=== PATIENT | female | born 1970 | race Caucasian/White ===

== ENCOUNTER 2020-09-18 13:19 | Outpatient (CLI) | payer OTHER, SELFPAY ==
--- NOTE | ~2020-09-18 | US_ITS ---
EXAMINATION: US venous doppler [facility] EXAM DATE: 09/18/2020 13:47 INDICATION: Thrombophlebitis and Phlebitis of unsp site. TECHNIQUE: Multiple grayscale, color flow and Doppler images of the left lower extremity deep venous system were obtained and reviewed. There is no prior study for comparison. FINDINGS: The left common femoral, femoral and profunda veins demonstrate normal color flow, respirat ory variation, augmentation and compressibility. Compressibility, color flow confirmed within the le ft popliteal, posterior tibial, peroneal, and greater saphenous veins. Posterior left calf palpable area demonstrates a thrombosed serpiginous superficial vein. IMPRESSION: 1. Left calf superficial thrombophlebitis. 2. No left lower extremity deep venous thrombosis. Reviewed, dictated and finalized at location A. [employer]
== END 2020-09-18 13:20 ==
PROVIDERS: PCP Nurse Practitioner; Visit Provider Nurse Practitioner
DX: I80.02 Phlebitis and thrombophlebitis of superficial vessels of left lower extremity (principal)
CPT/HCPCS: 93971

== ENCOUNTER 2020-09-24 13:13 | Emergency (ER) | payer OTHER, SELFPAY ==
--- NOTE | ~2020-09-24 | US_ITS ---
EXAMINATION: US venous doppler [facility] DATE: 09/24/2020 14:23 INDICATION: Left lower limb swelling. TECHNIQUE: Grayscale ultrasound images without and with compression and Doppler ultrasound images of the left lower extremity veins were obtained. COMPARISON: Ultrasound 09/18/2020 FINDINGS: The visualized portions of left common femoral vein, profunda (deep) femoral vein, femoral vein, popl iteal vein, peroneal veins, and posterior tibial veins are patent. There is thrombus in left greater saphenous vein. IMPRESSION: 1. No deep venous thrombosis. 2. Thrombus in left greater saphenous vein, which is a superficial vein. Reviewed, dictated and finalized at location A. [employer]
[2020-09-24 13:14] VITALS: BP 149/83; PULSE 99; RESP 20; TEMP 37.1; O2SAT 100
--- NOTE | 2020-09-24 13:49 | ED.GENADULT ---
HPI - General Adult General Chief complaint: Extremity Injury, Lower Stated complaint: Possible blood clot in left leg. Sent by PCP Time Seen by Provider: 09/24/20 13:39 Source: RN notes reviewed History of Present Illness HPI narrative: Patient presents emergency department from PCPs office for left leg pain. She states that starting last week she began to have pain in her left posterior calf. At that time on 18 September she had an ultrasound that showed superficial thrombophlebitis. She states that she been told to rest and elevate the leg and states that she has progressively had pain up to the medial knee and then the medial thigh she followed up in the office today and was asked to come to the ED for further evaluation. Patient denies any direct trauma or injury she denies any fever chills chest pain shortness of breath or any other symptoms Related Data Allergies Allergy/AdvReac Type Severity Reaction Status Date / Time No Known Allergies Allergy Verified 09/24/20 14:19 Review of Systems Review of Systems: Narrative: Gen.: Denies fevers or chills Eyes: Denies eye pain or visual change ENT: Denies congestion Respiratory: Denies shortness of breath or cough CV: Denies chest pain or palpitations GI: Denies abdominal pain nausea, emesis or diarrhea Musculoskeletal: See HPI Neuro: Denies numbness, tingling, weakness or focal weakness Skin: Denies rash Except as documented, all other systems reviewed and negative [facility] Past Medical History Medical History (Updated 09/24/20 @ 15:06 by Abram Boykin DO) Hypertension Social History Social History (Updated 09/24/20 @ 13:50 by Abram Boykin DO) Smoking status: Never smoker Gender identity (if verbalized by the patient): Female Exam Narrative: Exam Narrative: APPEARANCE: No acute distress, nontoxic, resting in bed EYES: EOMI HEENT: Normocephalic, atraumatic, OMM RESPIRATORY: No respiratory distress MUSCULOSKELETAl: Moves all extremities. No clubbing, cyanosis or edema. Tender palpation of the left posterior calf with mild swelling as well as left medial knee and left medial thigh with mild swelling no overlying erythema, dorsalis pedis pulse 2+ neurovascular intact NEURO: Awake and alert. Following commands, speech normal, no focal deficits SKIN:: Warm, dry. No rashes lesions or abrasions PSYCHIATRIC: Normal affect/mood, Course Course Emergency Course: Discussed Dr. Terry presentation work-up agrees plan for discharge follow-up as an outpatient Discussed with patient results of workup and diagnosis. Discussed need for follow-up with primary care, proper use of medication, and reasons to return to the emergency department. Patient understands and agrees to current treatment plan Vital Signs Vital signs: Vital Signs Temperature 98.8 F 09/24/20 13:14 Pulse Rate 99 09/24/20 13:14 Respiratory Rate 20 09/24/20 13:14 Blood Pressure 149/83 H 09/24/20 13:14 Pulse Oximetry 100 09/24/20 13:14 Temperature 98.8 F 09/24/20 13:14 Pulse Rate 81 09/24/20 14:19 Respiratory Rate 18 09/24/20 14:19 Blood Pressure 123/82 09/24/20 14:19 Pulse Oximetry 98 09/24/20 14:19 Medical Decision Making Vital Signs Vital Signs: Vital Signs Temperature 98.8 F 09/24/20 13:14 Pulse Rate 99 09/24/20 13:14 Respiratory Rate 20 09/24/20 13:14 Blood Pressure 149/83 H 09/24/20 13:14 Pulse Oximetry 100 09/24/20 13:14 Temperature 98.8 F 09/24/20 13:14 Pulse Rate 81 09/24/20 14:19 Respiratory Rate 18 09/24/20 14:19 Blood Pressure 123/82 09/24/20 14:19 Pulse Oximetry 98 09/24/20 14:19 Lab Data Result diagrams: 09/24/20 14:24 09/24/20 14:24 Labs: Lab Results 09/24/20 09/24/20 09/24/20 Range/Units 14:24 14:24 14:24 WBC 9.6 (4.5-10.0) K/mm3 RBC 4.63 (4.2-5.4) M/mm3 Hgb 14.5 (12.0-15.0) g/dL Hct 42.9 (37.0-47.0) % MCV 92.7 (80-100) fl MCH 31.3 (
[2020-09-24 14:19] VITALS: BP 123/82; PULSE 81; RESP 18; O2SAT 98
[2020-09-24 14:35] LABS: Basophils Percent Auto 0.4 % (0.2-1.2); Eosinophils Absolute Auto 0.4 K/mm3 (0-0.3); Eosinophils Percent Auto 4.3 % (0-4.4); Hematocrit 42.9 % (37.0-47.0); Hemoglobin 14.5 g/dL (12.0-15.0); Immature Granulocyte Absolute 0.02 K/mm3 (0.00-0.031); Immature Granulocyte Percent A 0.2 % (0-0.5); Lymphocytes Absolute Auto 1.85 K/mm3 (0.9-3.2); Lymphocytes Percent Auto 19.3 % (18.3-44.2); Mean Corpuscular HGB Conc 33.8 g/dl (32-36); Mean Corpuscular Hemoglobin 31.3 pg (26-34); Mean Corpuscular Volume 92.7 fl (80-100); Mean Platelet Volume 9.9 fl (7.4-10.4); Monocytes Absolute Auto 0.5 K/mm3 (0.1-0.6); Neutrophils Absolute Auto 6.8 K/mm3 (1.3-6.7); Neutrophils Percent Auto 70.8 % (45.5-73.1); Platelet Count Result 284 k/mm3 (150-375); Red Blood Count 4.63 M/mm3 (4.2-5.4); Red Cell Distribution Width 12.9 % (11.5-14.5); White Blood Count 9.6 K/mm3 (4.5-10.0)
[2020-09-24 14:51] LABS: Prothrombin Time 13.3 Seconds (11.1-14.7)
[2020-09-24 14:52] LABS: Anion Gap 5 mmol/L (8-16); Blood Urea Nitrogen 11 mg/dL (7-17); Calcium 8.8 mg/dL (8.4-10.2); Carbon Dioxide 30 mmol/L (22-30); Chloride 101 mmol/L (98-107); Estimated CRCL calculation 117 ml/min; Estimated Glomerular Filt Rate > 60; Glucose 122 mg/dL (65-105); Partial Thromboplastin Time 28.5 SECONDS (22.3-36.8); Potassium 3.9 mmol/L (3.4-5.0); Sodium 136 mmol/L (137-145)
[2020-09-24 15:13] VITALS: BP 133/75; PULSE 82; RESP 16; O2SAT 100
== END 2020-09-24 15:14 | disposition home or self-care (01) ==
PROVIDERS: Emergency Provider Emergency Medicine; PCP Nurse Practitioner
DX: I80.02 Phlebitis and thrombophlebitis of superficial vessels of left lower extremity (principal); I10 Essential (primary) hypertension
CPT/HCPCS: 36415; 80048; 85025; 85610; 85730; 93971; 99284

== ENCOUNTER 2020-12-26 14:42 | Emergency (ER) | payer OTHER, SELFPAY ==
[2020-12-26 14:50] VITALS: BP 137/76; PULSE 80; RESP 16; TEMP 36.7; O2SAT 100
--- NOTE | 2020-12-26 14:54 | ED.EAR ---
HPI - Ear Problem General Chief complaint: Ear Stated complaint: EARACHE Source: patient and RN notes reviewed Limitations: no limitations Related Data Home Medications Medication Instructions Recorded Confirmed hydrocodone-acetaminophen tablet 12/26/20 lisinopril 12/26/20 Allergies Allergy/AdvReac Type Severity Reaction Status Date / Time No Known Allergies Allergy Verified 09/24/20 14:19 [facility] Past Medical History Medical History (Updated 09/25/20 @ 00:00 by Shawnee Coto) Hypertension Social History Social History (Updated 09/24/20 @ 13:50 by Abram Boykin DO) Smoking status: Never smoker Gender identity (if verbalized by the patient): Female Course Vital Signs Vital signs: Vital Signs Temperature 98.1 F 12/26/20 14:50 Pulse Rate 80 12/26/20 14:50 Respiratory Rate 16 12/26/20 14:50 Blood Pressure 137/76 12/26/20 14:50 Pulse Oximetry 100 12/26/20 14:50 Temperature 98.1 F 12/26/20 14:50 Pulse Rate 80 12/26/20 14:50 Respiratory Rate 16 12/26/20 14:50 Blood Pressure 137/76 12/26/20 14:50 Pulse Oximetry 100 12/26/20 14:50 Medical Decision Making Vital Signs Vital Signs: Vital Signs Temperature 98.1 F 12/26/20 14:50 Pulse Rate 80 12/26/20 14:50 Respiratory Rate 16 12/26/20 14:50 Blood Pressure 137/76 12/26/20 14:50 Pulse Oximetry 100 12/26/20 14:50 Temperature 98.1 F 12/26/20 14:50 Pulse Rate 80 12/26/20 14:50 Respiratory Rate 16 12/26/20 14:50 Blood Pressure 137/76 12/26/20 14:50 Pulse Oximetry 100 12/26/20 14:50 Discharge Plan Discharge Prescriptions: No Action lisinopril 20 mg tablet RF: 0 hydrocodone-acetaminophen 10-325 mg tablet RF: 0 ibuprofen [IBU] 600 mg tablet 600 mg PO Q6H PRN (Reason: pain) Qty: 20 RF: 0
--- NOTE | 2020-12-26 15:12 | ED.EAR ---
HPI - Ear Problem General Chief complaint: Ear Stated complaint: EARACHE Source: patient and RN notes reviewed Limitations: no limitations History of Present Illness HPI Narrative: The patient, who is a non-smoker/occasional drinker on hydrocodone for back pain, presents with earache. Patient states she has a couple day history of significant right ear pain. Symptoms are mild to moderate worse with palpation including at the TMJ area, associated with preceding sinus fullness. No fever, loss of hearing, discharge, tinnitus, URI?sinusitis, CP, loss of taste/smell, S OB, tooth ache -but she has poor dentition [pending multiple extractions]. Related Data Home Medications Medication Instructions Recorded Confirmed hydrocodone-acetaminophen tablet 12/26/20 lisinopril 12/26/20 Allergies Allergy/AdvReac Type Severity Reaction Status Date / Time No Known Allergies Allergy Verified 09/24/20 14:19 Review of Systems Review of Systems: Narrative: General/Constitutional: No weight loss,fever Eyes: N0: Redness,discharge Ears/Nose/Throat: No: Epistaxis,ear discharge Respiratory: Denies: Hemoptysis Gastrointestinal: No Vomiting, Bleeding-rectal Skin: No Lumps, eruption Neurologic: No Focal Weakness,Sz Hematologic: Denies: Petechiae/Purpura Psychiatric: No: Suicida ideationl All Other Systems: Reviewed and Negative [facility] Past Medical History Medical History (Updated 12/26/20 @ 15:35 by Lamin Mack MD) Hypertension Social History Social History (Updated 09/24/20 @ 13:50 by Abram Boykin DO) Smoking status: Never smoker Gender identity (if verbalized by the patient): Female Comments At time of signature, agree with nursing past medical, surgical, social and family history. There is no relevant family history pertinent to the presenting complaint Exam Narrative: Exam Narrative: General Appearance: Well appearing, Well nourished, Obese EYE: PERRLA, EOMI, Conjunctiva clear Ears: TMs benign, external ear normal, right EAC minimally inflamed auditory canal normal Nose: Normal nose but tender right TMJ Mouth/Throat: Normal appearing , Normal lips, MM moist, Uvula midline (scattered dental caries and fillings,) Neck: Supple, No adenopathy Respiratory: Airway patent, No respiratory distress, Clear to auscultation Musculoskeletal: Full ROM, Non tender, Normal strength Skin: Warm, Dry, Normal color Neurological: A&O x3, Speech clear, CN II-XII intact Psychiatric: Normal mood, Normal affect Course Vital Signs Vital signs: Vital Signs Temperature 98.1 F 12/26/20 14:50 Pulse Rate 80 12/26/20 14:50 Respiratory Rate 16 12/26/20 14:50 Blood Pressure 137/76 12/26/20 14:50 Pulse Oximetry 100 12/26/20 14:50 Temperature 98.1 F 12/26/20 14:50 Pulse Rate 80 12/26/20 14:50 Respiratory Rate 16 12/26/20 14:50 Blood Pressure 137/76 12/26/20 14:50 Pulse Oximetry 100 12/26/20 14:50 Medical Decision Making Vital Signs Vital Signs: Vital Signs Temperature 98.1 F 12/26/20 14:50 Pulse Rate 80 12/26/20 14:50 Respiratory Rate 16 12/26/20 14:50 Blood Pressure 137/76 12/26/20 14:50 Pulse Oximetry 100 12/26/20 14:50 Temperature 98.1 F 12/26/20 14:50 Pulse Rate 80 12/26/20 14:50 Respiratory Rate 16 12/26/20 14:50 Blood Pressure 137/76 12/26/20 14:50 Pulse Oximetry 100 12/26/20 14:50 Discharge Plan Discharge Clinical Impression: Otalgia, right ear, TMJ tenderness, right Patient Disposition: Home, Self-Care Condition: Stable Instructions: Temporomandibular Disorder (ED) Prescriptions: New qqsstooi-knkakpddp-OJ 3.5-10,000-1 mg/mL-unit/mL-% solution 4 drop RIGHT EAR Q8H Qty: 10 RF: 0 prednisone 20 mg tablet 60 mg PO DAILY Qty: 9 RF: 0 amoxicillin 875 mg tablet 875 mg PO Q12H Qty: 14 RF: 0 No Action lisinopril 20 mg tablet RF: 0 hydrocodone-acetaminophen 10-325 mg tablet
== END 2020-12-26 15:22 | disposition home or self-care (01) ==
PROVIDERS: Emergency Provider Emergency Medicine; PCP Family Medicine
DX: H92.01 Otalgia, right ear (principal); M26.601 Right temporomandibular joint disorder, unspecified; I10 Essential (primary) hypertension
CPT/HCPCS: 99213; G0463

== ENCOUNTER 2022-04-12 18:56 | Emergency (ER) | payer OTHER, SELFPAY ==
[2022-04-12 19:02] VITALS: BP 141/69; PULSE 102; RESP 18; TEMP 37.1; O2SAT 100
--- NOTE | 2022-04-12 19:30 | ED.EXTPRO ---
HPI - Extremity Problem General Chief complaint: Extremity Problem,Nontraumatic Stated complaint: leg swelling Time Seen by Provider: 04/12/22 19:08 History of Present Illness HPI Narrative: 51-year-old female presents emergency room secondary swelling and some pain to the left lower extremity. Been going on for approximately 1 and half weeks. She is now concerned that maybe she got a blood clot in the leg. She did have some superficial thromboses in her left leg many years ago. 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 Denies any chest pain or shortness of breath. She had no other history of any bleeding disorder that she is aware of. She got no easy bruising. Related Data Home Medications Medication Instructions Recorded Confirmed hydrocodone 10 mg-acetaminophen tablet 12/26/20 325 mg tablet lisinopril 20 mg tablet 12/26/20 Allergies Allergy/AdvReac Type Severity Reaction Status Date / Time No Known Allergies Allergy Verified 09/24/20 14:19 Review of Systems Review of Systems: CONSTITUTIONAL: Denies fever, chills, or sweats. EYES: Denies visual changes, redness, or discharge. ENT: Denies rhinorrhea, congestion, sore throat, or otalgia. CARDIOVASCULAR: Denies chest pain, palpitations, or edema. RESPIRATORY: Denies cough or dyspnea. GASTROINTESTINAL: Denies abdominal pain, nausea, vomiting, or diarrhea. GENITOURINARY: Denies dysuria or hematuria. SKIN: Denies rash or itching. MUSCULOSKELETAL: Denies back pain, joint pain, or myalgia. Swelling and pain to left lower extremity NEUROLOGIC: Denies headache, numbness, or weakness. PSYCHIATRIC: Denies anxiety or depression. [facility] Past Medical History Medical History Hypertension Social History Social History Smoking status: Never smoker Gender identity (if verbalized by the patient): Female Exam Narrative: APPEARANCE: Well appearing, no pain or distress, well-nourished. Head Normocephalic and atraumatic. EYES: PERRLA/EOMI, conjunctivae clear. NOSE: Normal with no drainage EARS:TMS clear with Beatty, with good light reflex. THROAT: Pharynx clear, no exudate. NECK: Supple. No adenopathy, no masses. RESPIRATORY: Airway patent, respirations nonlabored. Clear to auscultation bilaterally, no rales, rhonchi, wheezing. CARDIOVASCULAR: Regular rate and rhythm without murmurs, rubs, or gallops. ABDOMINAL: Soft, nontender, nondistended, no hepatosplenomegaly Musculoskeletal: Moves all extremities. Strength/ROM intact, noted have some swelling to the left lower extremity from the thigh down to the ankle region with some tenderness to palpation the medial aspect of the left thigh as well as into the calf. Good distal pulses. NEURO: Alert. Cranial nerves II through XII intact. Normal gait. Good coordination. Nonfocal examination. SKIN:: Warm, dry. Normal Color PSYCHIATRIC: Normal affect/mood, normal interaction Course Vital Signs Vital signs: Vital Signs Temperature 98.8 F 04/12/22 19:02 Pulse Rate 102 H 04/12/22 19:02 Respiratory Rate 18 04/12/22 19:02 Blood Pressure 141/69 H 04/12/22 19:02 Pulse Oximetry 100 04/12/22 19:02 Oxygen Delivery Room Air 04/12/22 19:02 Temperature 98.8 F 04/12/22 19:02 Pulse Rate 102 H 04/12/22 19:02 Respiratory Rate 18 04/12/22 19:02 Blood Pressure 141/69 H 04/12/22 19:02 Pulse Oximetry 100 04/12/22 19:02 Oxygen Delivery Room Air 04/12/22 19:02 MDM - Extremity (Nontraumatic) MDM Narrative Medical decision making narrative: Based on the patient's history and presentation. Concern for DVT of the left lower extremity. Unable to get a Doppler study done tonight so patient was given Lovenox 1 mg/kg subcutaneously. She was discharged to home care to come back at 730 tomorrow morning to have the study performed. If
[2022-04-12] MEDS: ENOXAPARIN 100 MG/ML SYRINGE 95 MG SUB-Q (19:32)
[2022-04-12 19:35] VITALS: PULSE 95; RESP 14; O2SAT 100
== END 2022-04-12 19:35 | disposition home or self-care (01) ==
PROVIDERS: Emergency Provider Emergency Medicine; PCP Family Medicine
DX: M79.89 Other specified soft tissue disorders (principal); I10 Essential (primary) hypertension
CPT/HCPCS: 96372; 99283; J1650

== ENCOUNTER 2022-04-13 07:43 | Outpatient (CLI) | payer OTHER, SELFPAY ==
--- NOTE | ~2022-04-13 | US_ITS ---
EXAMINATION: US venous doppler [facility] DATE: 04/13/2022 08:28 INDICATION: Left lower limb swelling, history of venous thrombosis TECHNIQUE: Beatty scale images without and with compression and Doppler images of the left lower extrem ity veins were obtained. COMPARISON: 09/24/2020 FINDINGS: The left common femoral vein, profunda femoral vein, femoral vein, popliteal vein, peroneal trunk, and posterior tibial veins are patent. There is chronic partial thrombosis of the left greate r saphenous vein. IMPRESSION: 1. No evidence of deep venous thrombosis. Chronic partial superficial thrombosis of the left greater saphenous vein Reviewed, dictated and finalized at location A. IMPRESSION: 1. No evidence of deep venous thrombosis. Chronic partial superficial thrombosi s of the left greater saphenous vein
== END 2022-04-13 07:44 | disposition home or self-care (01) ==
PROVIDERS: PCP Family Medicine; Visit Provider Family Medicine
DX: M79.89 Other specified soft tissue disorders (principal); Z86.718 Personal history of other venous thrombosis and embolism
CPT/HCPCS: 93971

== ENCOUNTER 2022-11-07 09:04 | Outpatient (CLI) | payer OTHER, SELFPAY ==
[2022-11-07 19:26] LABS: Basophils Absolute Auto 0.1 K/mm3 (0.0-0.1); Eosinophils Absolute Auto 0.5 K/mm3 (0-0.3); Eosinophils Percent Auto 7.2 % (0-4.4); Hematocrit 48.3 % (37.0-47.0); Hemoglobin 15.9 g/dL (12.0-15.0); Immature Granulocyte Absolute 0.02 K/mm3 (0.00-0.031); Immature Granulocyte Percent A 0.3 % (0-0.5); Lymphocytes Absolute Auto 2.19 K/mm3 (0.9-3.2); Lymphocytes Percent Auto 30.8 % (18.3-44.2); Mean Corpuscular HGB Conc 32.9 g/dl (32-36); Mean Corpuscular Hemoglobin 31.6 pg (26-34); Mean Platelet Volume 10.5 fl (7.4-10.4); Monocytes Absolute Auto 0.5 K/mm3 (0.1-0.6); Monocytes Percent Auto 7.4 % (2.6-8.5); Neutrophils Absolute Auto 3.8 K/mm3 (1.3-6.7); Neutrophils Percent Auto 53.3 % (45.5-73.1); Platelet Count Result 266 k/mm3 (150-375); Red Blood Count 5.03 M/mm3 (4.2-5.4); Red Cell Distribution Width 13.2 % (11.5-14.5); White Blood Count 7.1 K/mm3 (4.5-10.0)
[2022-11-07 19:30] LABS: Alanine Aminotransferase 24 U/L (6-35); Albumin Level 4.1 g/dL (3.5-5.1); Alkaline Phosphatase 69 U/L (38-126); Anion Gap 5 mmol/L (8-16); Aspartate Amino Transferase 29 U/L (14-36); Bilirubin,Total 0.5 mg/dL (0.2-1.3); Blood Urea Nitrogen 12 mg/dL (7-17); Calcium 8.8 mg/dL (8.4-10.2); Carbon Dioxide 29 mmol/L (22-30); Chloride 102 mmol/L (98-107); Cholesterol 212 mg/dL (0-200); Estimated Glomerular Filt Rate > 60; Glucose 95 mg/dL (65-110); HDL Direct 47 mg/dL; Potassium 3.7 mmol/L (3.4-5.0); Sodium 136 mmol/L (137-145); Triglycerides 122 mg/dL (<150)
[2022-11-07 19:37] LABS: LDL Cholesterol Direct 118 mg/dL; Vitamin D 25 Hydroxy 17.7 ng/mL
[2022-11-07 19:53] LABS: Thyroid Stimulating Hormone 0.611 uIU/mL (0.465-4.680)
== END 2022-11-07 09:05 | disposition home or self-care (01) ==
LOC: ANHGOSHLAB 09:06
PROVIDERS: PCP Family Medicine; Visit Provider Family Medicine
DX: E55.9 Vitamin D deficiency, unspecified (principal); I10 Essential (primary) hypertension; E03.9 Hypothyroidism, unspecified; E78.5 Hyperlipidemia, unspecified; D64.9 Anemia, unspecified
CPT/HCPCS: 36415; 80053; 80061; 82306; 84443; 85025

== ENCOUNTER 2023-12-25 10:17 | Outpatient (CLI) | payer OTHER, SELFPAY ==
[2023-12-25 13:54] LABS: Basophils Absolute Auto 0.1 K/mm3 (0.0-0.1); Basophils Percent Auto 0.6 % (0.2-1.2); Eosinophils Absolute Auto 0.5 K/mm3 (0-0.3); Eosinophils Percent Auto 4.7 % (0-4.4); Hematocrit 45.9 % (37.0-47.0); Hemoglobin 14.8 g/dL (12.0-15.0); Immature Granulocyte Absolute 0.03 K/mm3 (0.00-0.031); Immature Granulocyte Percent A 0.3 % (0-0.5); Lymphocytes Absolute Auto 2.08 K/mm3 (0.9-3.2); Lymphocytes Percent Auto 19.5 % (18.3-44.2); Mean Corpuscular HGB Conc 32.2 g/dl (32-36); Mean Corpuscular Hemoglobin 32.3 pg (26-34); Mean Corpuscular Volume 100.2 fl (80-100); Mean Platelet Volume 11.2 fl (7.4-10.4); Monocytes Absolute Auto 0.8 K/mm3 (0.1-0.6); Monocytes Percent Auto 7.8 % (2.6-8.5); Neutrophils Absolute Auto 7.1 K/mm3 (1.3-6.7); Neutrophils Percent Auto 67.1 % (45.5-73.1); Platelet Count Result 197 k/mm3 (150-375); Red Blood Count 4.58 M/mm3 (4.2-5.4); Red Cell Distribution Width 14.2 % (11.5-14.5); White Blood Count 10.6 K/mm3 (4.5-10.0)
[2023-12-25 14:05] LABS: Alanine Aminotransferase 24 U/L (6-35); Alkaline Phosphatase 74 U/L (38-126); Anion Gap 4 mmol/L (4-12); Aspartate Amino Transferase 39 U/L (14-36); Bilirubin,Total 0.5 mg/dL (0.2-1.3); Blood Urea Nitrogen 13 mg/dL (7-17); Calcium 8.4 mg/dL (8.4-10.2); Carbon Dioxide 30 mmol/L (22-30); Chloride 105 mmol/L (98-107); Cholesterol 171 mg/dL (0-200); Estimated Glomerular Filt Rate > 60; Glucose 98 mg/dL (65-110); HDL Direct 63 mg/dL; Potassium 3.9 mmol/L (3.4-5.0); Sodium 139 mmol/L (137-145); Triglycerides 58 mg/dL (<150)
[2023-12-25 14:16] LABS: LDL Cholesterol Direct 97 mg/dL
[2023-12-25 15:29] LABS: Vitamin D 25 Hydroxy < 12.8 ng/mL
== END 2023-12-25 10:18 | disposition home or self-care (01) ==
LOC: ANHGOSHLAB 10:19
PROVIDERS: PCP Family Medicine; Visit Provider Family Medicine
DX: E78.5 Hyperlipidemia, unspecified (principal); I10 Essential (primary) hypertension; E66.9 Obesity, unspecified
CPT/HCPCS: 36415; 80053; 80061; 82306; 85025

== ENCOUNTER 2024-07-15 12:31 | Outpatient (CLI) | payer OTHER, SELFPAY ==
[2024-07-15 18:05] LABS: Basophils Percent Auto 0.6 % (0.2-1.2); Eosinophils Absolute Auto 0.3 K/mm3 (0-0.3); Eosinophils Percent Auto 4.6 % (0-4.4); Hematocrit 46.7 % (37.0-47.0); Hemoglobin 15.5 g/dL (12.0-15.0); Immature Granulocyte Absolute 0.01 K/mm3 (0.00-0.031); Immature Granulocyte Percent A 0.1 % (0-0.5); Lymphocytes Absolute Auto 1.96 K/mm3 (0.9-3.2); Lymphocytes Percent Auto 27.9 % (18.3-44.2); Mean Corpuscular HGB Conc 33.2 g/dl (32-36); Mean Corpuscular Hemoglobin 32.4 pg (26-34); Mean Corpuscular Volume 97.5 fl (80-100); Mean Platelet Volume 10.8 fl (7.4-10.4); Monocytes Absolute Auto 0.5 K/mm3 (0.1-0.6); Monocytes Percent Auto 7.4 % (2.6-8.5); Neutrophils Absolute Auto 4.2 K/mm3 (1.3-6.7); Neutrophils Percent Auto 59.4 % (45.5-73.1); Platelet Count Result 209 k/mm3 (150-375); Red Blood Count 4.79 M/mm3 (4.2-5.4); Red Cell Distribution Width 13.1 % (11.5-14.5)
[2024-07-15 18:19] LABS: Alanine Aminotransferase 19 U/L (6-35); Albumin Level 4.4 g/dL (3.5-5.1); Alkaline Phosphatase 71 U/L (38-126); Anion Gap 9 mmol/L (4-12); Aspartate Amino Transferase 50 U/L (14-36); Bilirubin,Total 0.5 mg/dL (0.2-1.3); Blood Urea Nitrogen 11 mg/dL (7-17); Calcium 8.8 mg/dL (8.4-10.2); Carbon Dioxide 27 mmol/L (22-30); Chloride 102 mmol/L (98-107); Cholesterol 208 mg/dL (0-200); Estimated Glomerular Filt Rate > 60; Glucose 93 mg/dL (65-110); HDL Direct 63 mg/dL; Potassium 3.9 mmol/L (3.4-5.0); Sodium 138 mmol/L (137-145); Triglycerides 99 mg/dL (<150)
[2024-07-15 18:30] LABS: LDL Cholesterol Direct 102 mg/dL
== END 2024-07-15 12:32 | disposition home or self-care (01) ==
LOC: ANHGOSHLAB 12:34
PROVIDERS: PCP Family Medicine; Visit Provider Family Medicine
DX: E78.5 Hyperlipidemia, unspecified (principal); I10 Essential (primary) hypertension
CPT/HCPCS: 36415; 80053; 80061; 85025

== ENCOUNTER 2025-03-17 08:04 | Outpatient (CLI) | payer OTHER, SELFPAY ==
--- OUTSIDE RECORDS SUMMARY | 2025-03-17 08:07 | XMS_ITS | Patient Health Record ---
Author Organization [facility] Address [address] [place] [address] Support Name Relationship Address Phone Nichole Cantu Guarantor Unknown [phone] Reason For Referral No Information Plan Of Treatment No Information
--- OUTSIDE RECORDS SUMMARY | 2025-03-17 08:07 | XMS_ITS | Clinical Summary ---
Author Organization [facility] Address [address] 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
--- OUTSIDE RECORDS SUMMARY | 2025-03-17 08:07 | XMS_ITS | Clinical Summary ---
Author Organization [facility] Address [address] [place] [address] Care Team Providers Care Energy Conservation Engineer Name Role Phone Abram Soriano MD Primary Care Provider [phone] Source Comments [facility] [employer],non-owned Affiliates and Associated Physician Practices is amultiple site organization consisting of ambulatory clinics and hospital sitesin [place], [place], [place] and [place]. This disclosure is being madepursuant to the Care Everywhere program and may not contain all information available regarding this patient. Last updated 18.[facility] Allergies No known active allergies Medications * Be aware that medications may not be up to date on this document. Alwaysverify current medications with the patient. ibuprofen (MOTRIN) 200 MG tablet Take by mouth every 6 hours as needed. Active hydrocodone-acet aminophen (NORCO) 7.5-325 MG tablet Take 1 Tab by mouth every 4 hours as needed for Pain. Active piroxicam (FELDENE) 10 MG capsule Take 1 Cap by mouth once daily. 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 Not on file Not on f ile Last Filed Vital Signs Vital Sign Reading Time Taken Comments Blood Pressure 132/74 01/31/2015 1:29 PM CDT Pulse 87 01/31/2015 1:29 PM CDT Temperature 36.8 C (98.2 F) 01/01/2013 6:47 PM CDT Respiratory Rate 18 01/31/2015 1:29 PM CDT Oxygen Saturation 100% 01/01/2013 6:47 PM CDT Inhaled Oxygen Concentration - - Weight 65.8 kg (145 lb) 01/31/2015 1:29 PM CDT Height 177.8 cm (5' 10) 01/31/2015 1:29 PM CDT Body Mass Index 20.81 01/31/2015 1:29 PM CDT Plan of Treatment Health Maintenance Due Date Last Done Comments COLOGUARD (AGES 45-75) - COL ON CA SCREENING 1970 COLON MONITORING 1970 COLONOSCOPY - COLON CA SCREENING 1970 CT COLONOGRAPHY - COLON CA SCREENING 1970 Colorectal Cancer Screening 1970 FIT - COLON CA SCREENING 1970 FLEX SIG - COLON CA SCREENING 1970 LIPID TESTING 1970 MAMMOGRAM 1970 HIV SCREENING 1985 HEPATITIS C SCREENING 06/06/1988 DTAP/TDAP/TD VACCINES (1 - Tdap) 1989 HEPATITIS B VACCINE (1 of 3 - 19+ 3-dose series) 1989 PNEUMOCOCCAL VACCINE 50+ (1 of 1 - PCV) 2020 ZOSTER VACCINE (1 of 2) 2020 COVID-19 VACCINE (1 - 2023-2 5 season) 2024 DEPRESSION SCREENING 08/31/2024 INFLUENZA VACCINE (#1) 2025 HIB VACCINE Aged Out No longer eligi ble based on patient's age to complete this topic HPV VACCINE Aged Out No longer eligi ble based on patient's age to complete this topic MENINGOCOCCAL (Group B) VACC INE SHARED DECISION-MAKING Aged Out No longer eligibl e based on patient's age to complete this topic MENINGOCOCCAL GROUPS A/C/Y/W VACCINE Aged Out No longer eligible b ased on patient's age to complete this topic Insurance [address] [facility] [place] [id number] [facility] [employer] Care Teams Energy Conservation Engineer Relationship Specialty Start Date End Date Abram Soriano MD [address] [place] [id number] PCP - General 04/15/21
--- OUTSIDE RECORDS SUMMARY | 2025-03-17 08:07 | XMS_ITS | Encounter Summary ---
Author Organization [facility] Address [address] 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
[2025-03-17 18:08] LABS: Hematocrit 46.4 % (37.0-47.0); Hemoglobin 14.9 g/dL (12.0-15.0); Immature Granulocyte Percent A 0.1 % (0-0.5); Lymphocytes Absolute Auto 1.89 K/mm3 (0.9-3.2); Mean Corpuscular HGB Conc 32.1 g/dl (32-36); Mean Corpuscular Hemoglobin 31.4 pg (26-34); Mean Corpuscular Volume 97.7 fl (80-100); Nucleated Red Blood Cells Absolute Auto 0.000 K/mm3 (0.0-0.012); Nucleated Red Blood Cells Perc 0.0 % (0.0-0.2); Platelet Count Result 208 k/mm3 (150-375); Red Blood Count 4.75 M/mm3 (4.2-5.4); White Blood Count 7.7 K/mm3 (4.5-10.0)
[2025-03-17 18:12] LABS: Iron 147 ug/dL (37-170)
[2025-03-17 18:29] LABS: Alanine Aminotransferase 22 U/L (6-35); Albumin Level 4.3 g/dL (3.5-5.1); Alkaline Phosphatase 61 U/L (38-126); Anion Gap 8 mmol/L (4-12); Aspartate Amino Transferase 63 U/L (14-36); Bilirubin,Total 0.4 mg/dL (0.2-1.3); Blood Urea Nitrogen 16 mg/dL (7-17); Calcium 9.0 mg/dL (8.4-10.2); Carbon Dioxide 27 mmol/L (22-30); Chloride 106 mmol/L (98-107); Cholesterol 220 mg/dL (0-200); Estimated Glomerular Filt Rate > 60; Glucose 85 mg/dL (65-110); HDL Direct 71 mg/dL; Potassium 4.0 mmol/L (3.4-5.0); Sodium 141 mmol/L (137-145); Total Protein 7.2 g/dL (6.3-8.2); Triglycerides 76 mg/dL (<150)
[2025-03-17 18:56] LABS: Ferritin 37.50 ng/mL (11.1-264)
[2025-03-17 19:40] LABS: Hemoglobin A1C 5.2 % (<5.7)
[2025-03-17 22:33] LABS: Free T4 Free Thyroxine 1.39 ng/dL (0.78-2.19)
[2025-03-17 23:19] LABS: Total Triiodothyronine (T3) 0.99 NG/ML (0.82-1.58)
[2025-03-18 03:45] LABS: Thyroid Stimulating Hormone 0.911 uIU/mL (0.465-4.680)
== END 2025-03-17 08:05 | disposition home or self-care (01) ==
LOC: ANHGOSHLAB 08:05
PROVIDERS: PCP Family Medicine; Visit Provider Family Medicine
DX: E78.2 Mixed hyperlipidemia (principal); E55.9 Vitamin D deficiency, unspecified; I10 Essential (primary) hypertension; Z79.891 Long term (current) use of opiate analgesic
CPT/HCPCS: 36415; 80053; 80061; 82306; 82728; 82746; 83036; 83540; 84439; 84443; 84480; 85025

== ENCOUNTER 2025-06-16 08:26 | Outpatient (CLI) | payer OTHER, SELFPAY ==
--- OUTSIDE RECORDS SUMMARY | 2025-06-16 08:37 | XMS_ITS | Encounter Summary ---
Author Organization [facility] Address [address] 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
--- OUTSIDE RECORDS SUMMARY | 2025-06-16 08:37 | XMS_ITS | Clinical Summary ---
Author Organization [facility] Address [address] 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
--- OUTSIDE RECORDS SUMMARY | 2025-06-16 08:37 | XMS_ITS | Clinical Summary ---
Author Organization [facility] Address [address] [place] [address] Care Team Providers Care Ship'S Pilot Name Role Phone Abram Soriano MD Primary Care Provider [phone] Source Comments [facility],non-owned Affiliates and Associated Physician Practices is amultiple site organization consisting of ambulatory clinics and hospital sitesin [place], [place], [place] and [place]. This disclosure is being madepursuant to the Care Everywhere program and may not contain all information available regarding this patient. 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 [employer] Care Teams Ship'S Pilot Relationship Specialty Start Date End Date Abram Soriano MD [address] [place] [id number] PCP - General 04/15/21
--- OUTSIDE RECORDS SUMMARY | 2025-06-16 08:37 | XMS_ITS | Patient Health Record ---
Author Organization [facility] Address [address] [place] [address] Support Name Relationship Address Phone Nichole Cantu Guarantor Unknown [phone] Reason For Referral No Information Plan Of Treatment No Information
[2025-06-16 12:48] LABS: Hematocrit 44.3 % (37.0-47.0); Hemoglobin 14.3 g/dL (12.0-15.0); Mean Corpuscular HGB Conc 32.3 g/dl (32-36); Mean Corpuscular Hemoglobin 31.8 pg (26-34); Mean Corpuscular Volume 98.7 fl (80-100); Platelet Count Result 214 k/mm3 (150-375); Red Blood Count 4.49 M/mm3 (4.2-5.4); White Blood Count 6.6 K/mm3 (4.5-10.0)
[2025-06-16 13:08] LABS: Alanine Aminotransferase 20 U/L (6-35); Albumin Level 4.0 g/dL (3.5-5.1); Alkaline Phosphatase 70 U/L (38-126); Anion Gap 8 mmol/L (4-12); Aspartate Amino Transferase 67 U/L (14-36); Bilirubin,Total 0.4 mg/dL (0.2-1.3); Blood Urea Nitrogen 17 mg/dL (7-17); Calcium 9.1 mg/dL (8.4-10.2); Carbon Dioxide 26 mmol/L (22-30); Chloride 107 mmol/L (98-107); Cholesterol 182 mg/dL (0-200); Estimated Glomerular Filt Rate > 60; Glucose 98 mg/dL (65-110); HDL Direct 62 mg/dL; Magnesium 1.5 mg/dL (1.6-2.3); Potassium 3.7 mmol/L (3.4-5.0); Sodium 141 mmol/L (137-145); Total Protein 7.0 g/dL (6.3-8.2); Triglycerides 78 mg/dL (<150)
[2025-06-16 13:09] LABS: NT Pro B Type Natriuretic Pept 24 pg/mL (19.9-100)
[2025-06-16 13:14] LABS: Hemoglobin A1C 5.2 % (<5.7)
[2025-06-16 13:30] LABS: Thyroid Stimulating Hormone 0.758 uIU/mL (0.465-4.680)
[2025-06-16 14:06] LABS: Vitamin B12 799.0 pg/mL (239-931)
== END 2025-06-16 08:27 | disposition home or self-care (01) ==
LOC: ANHGOSHLAB 08:27
PROVIDERS: PCP Family Medicine; Visit Provider Nurse Practitioner Family
DX: Z13.1 Encounter for screening for diabetes mellitus (principal); R53.83 Other fatigue; I10 Essential (primary) hypertension; E78.2 Mixed hyperlipidemia; R01.1 Cardiac murmur, unspecified
CPT/HCPCS: 36415; 80053; 80061; 82306; 82607; 82746; 83036; 83735; 83880; 84443; 85027; 86376